=== PATIENT | male | born 1995 | race Caucasian/White ===

== ENCOUNTER 2021-11-04 07:03 | Emergency (ER) | payer OTHER ==
[~2021-11-04] VITALS: Ht 193 cm; Wt 81.7 kg
[2021-11-04] MEDS ORDERED: WELLBUTRIN XL300 MG PO (07:15)
[2021-11-04] MEDS ORDERED: LEXAPRO20 MG PO (07:15)
[2021-11-04] MEDS ORDERED: ADDERALL 20 MG20 MG PO (07:17)
[2021-11-04] MEDS ORDERED: BUSPIRONE HCL10 MG PO (07:18)
[2021-11-04 09:36] VITALS: BP 139/84
== END 2021-11-04 10:12 | disposition home or self-care (01) ==
LOC: ER 07:03
DX: T40.601A Poisoning by unspecified narcotics, accidental (unintentional), initial encounter (principal); Z79.899 Other long term (current) drug therapy; Y92.89 Other specified places as the place of occurrence of the external cause